=== PATIENT | male | born 1975 | race Hispanic/Latino ===

== ENCOUNTER 2017-11-03 15:38 | Emergency (ER) | payer OTHER ==
[2017-11-03] MEDS ORDERED: MOTRIN PO ONE (17:50)
--- NOTE | 2017-11-03 18:57 | XRay Report ---
FINAL REPORT PROCEDURE: Chest. TECHNIQUE: PA and lateral views. HISTORY: Bloody sputum. COMPARISON: No prior studies are available for comparison. FINDINGS: The heart and mediastinum appear normal. The lungs are clear and well expanded. There are no pleural effusions. The soft tissues and regional skeleton are unremarkable. IMPRESSION: Normal study.
--- NOTE | 2017-11-03 19:10 | Emergency Department Report ---
ED General Adult HPI - General Chief complaint: Abdominal Pain Stated complaint: ABD PAIN/COUGHING BLOOD Time Seen by Provider: 11/03/17 17:48 Source: patient Mode of arrival: Ambulatory Limitations: No Limitations - History of Present Illness Initial comments: 42-year-old male past medical history presents with complaint of persistent cough and upper abdominal discomfort. Subjective chills denies fevers. Awake alert and oriented 3 speaking in full sentences. Fully lucid and alert nontoxic-appearing and ambulatory. States he had slightly bloody cough earlier today. No history of PE or DVT. Patient is a smoker. Patient was medically screened by Dr. Caceres initially. Onset/Timin -: days(s) Severity scale (0 -10): 7 Quality: aching Consistency: intermittent Improves with: none Worsens with: cold therapy Associated Symptoms: denies other symptoms - Related Data Previous Rx's Medication Instructions Recorded Last Taken Type Albuterol Sulfate [Ventolin Hfa] 1 puff IH Q4H PRN #1 hfa.aer.ad 11/03/17 Unknown Rx Azithromycin [Zithromax TAB] 250 mg PO QDAY #5 tablet 11/03/17 Unknown Rx Naproxen [Naprosyn] 500 mg PO BID PRN #30 tablet 11/03/17 Unknown Rx Phenylephrine/Dm/Acetaminop/GG 10 ml PO Q6H PRN #1 liquid 11/03/17 Unknown Rx [Mucinex Raxg-Kiw-Afshbchthl Lq] Allergies Allergy/AdvReac Type Severity Reaction Status Date / Time No Known Allergies Allergy Unverified 11/03/17 15:41 ED Review of Systems ROS: Stated complaint: ABD PAIN/COUGHING BLOOD Other details as noted in HPI Constitutional: denies: chills, fever Eyes: denies: eye pain, eye discharge, vision change ENT: denies: ear pain, throat pain Respiratory: cough. denies: shortness of breath, wheezing Cardiovascular: denies: chest pain, palpitations Endocrine: no symptoms reported Gastrointestinal: denies: abdominal pain, nausea, diarrhea Genitourinary: denies: urgency, dysuria Musculoskeletal: denies: back pain, joint swelling, arthralgia Skin: denies: rash, lesions Neurological: denies: headache, weakness, paresthesias Psychiatric: denies: anxiety, depression Hematological/Lymphatic: denies: easy bleeding, easy bruising ED Past Medical Hx - Social History Smoking Status: Current Every Day Smoker Substance Use Type: Alcohol - Medications Home Medications: Home Medications Medication Instructions Recorded Confirmed Last Taken Type Albuterol Sulfate [Ventolin Hfa] 1 puff IH Q4H PRN #1 hfa.aer.ad 11/03/17 Unknown Rx Azithromycin [Zithromax TAB] 250 mg PO QDAY #5 tablet 11/03/17 Unknown Rx Naproxen [Naprosyn] 500 mg PO BID PRN #30 tablet 11/03/17 Unknown Rx Phenylephrine/Dm/Acetaminop/GG 10 ml PO Q6H PRN #1 liquid 11/03/17 Unknown Rx [Mucinex Lryq-Irj-Exfxevwfcc Lq] ED Physical Exam - General Limitations: No Limitations General appearance: alert, in no apparent distress - Head Head exam: Present: atraumatic, normocephalic - Eye Eye exam: Present: normal appearance, PERRL, EOMI - ENT ENT exam: Present: mucous membranes moist - Neck Neck exam: Present: normal inspection - Respiratory Respiratory exam: Present: normal lung sounds bilaterally. Absent: respiratory distress - Cardiovascular Cardiovascular Exam: Present: regular rate, normal rhythm. Absent: systolic murmur, diastolic murmur, rubs, gallop - GI/Abdominal GI/Abdominal exam: Present: soft, normal bowel sounds - Rectal Rectal exam: Present: deferred - Extremities Exam Extremities exam: Present: normal inspection - Back Exam Back exam: Present: normal inspection - Neurological Exam Neurological exam: Present: alert, oriented X3 - Psychiatric Psychiatric exam: Present: normal affect, normal mood - Skin Skin exam: Present: warm, dry, intact, normal color. Absent: rash ED Course Vital Signs 11/03/17 11/03/17 15:41 20:18 Temperature 97.6 F 98.3 F Pulse Rate 93 H 86 Respiratory 18 18 Rate Blood Pressure 143/87 Blood Pressure 140/79 [Left] O2 Sat by Pulse 98 98 Oximetry ED Medical Decision Making - Lab Data Result diagrams: 11/03/17 19:30 11/03/17 19:30 - Medical Decision Making A/P: Right lower lobe pneumonia 1-course of azithromycin 2-Mucinex, albuterol inhaler, naproxen when necessary 3-follow-up with primary care doctor. I advised patient to return to the ED for any shortness of breath at rest persistent nausea and vomiting and/or persistent chest pain 4- case discussed with Dr. Caceres before discharge Critical care attestation.: If time is entered above; I have spent that time in minutes in the direct care of this critically ill patient, excluding procedure time. ED Disposition Clinical Impression: Right lower lobe pneumonia Qualifiers: Pneumonia type: due to unspecified organism Qualified Code(s): J18.1 - Lobar pneumonia, unspecified organism Disposition: TO HOME OR SELFCARE Is pt being admited?: No Does the pt Need Aspirin: No Condition: Stable Instructions: Community-acquired Pneumonia (ED), Bacterial Pneumonia (ED) Prescriptions: Albuterol Sulfate [Ventolin Hfa] 1 puff IH Q4H PRN #1 hfa.aer.ad PRN Reason: Cough Azithromycin [Zithromax TAB] 250 mg PO QDAY #5 tablet Naproxen [Naprosyn] 500 mg PO BID PRN #30 tablet PRN Reason: Pain Phenylephrine/Dm/Acetaminop/GG [Mucinex Epjk-Pjo-Cbgvtrkblp Lq] 10 ml PO Q6H PRN #1 liquid PRN Reason: Cough Referrals: [facility] [Outside] - 3-5 Days [facility] [Outside] - 3-5 Days Forms: Work/School Release Form(ED) Time of Disposition: 20:45
[2017-11-03 19:41] LABS: Basophils % (Auto) 0.2 % (0.0-1.8); Eosinophils % (Auto) 0.6 % (0.0-4.3); Hematocrit 47.4 % (35.5-45.6); Hemoglobin 16.6 gm/dl (11.8-15.2); Mean Corpuscular HGB Conc 35 % (32-34); Mean Corpuscular Hemoglobin 31 pg (28-32); Mean Corpuscular Volume 88 fl (84-94); Platelet Count 222 K/mm3 (140-440); Red Blood Count 5.36 M/mm3 (3.65-5.03); Red Cell Distribution Width 12.7 % (13.2-15.2)
[2017-11-03 19:58] LABS: Anion Gap 20 mmol/L; BUN/Creatinine Ratio 17; Blood Urea Nitrogen 12 mg/dL (9-20); Calcium 9.3 mg/dL (8.4-10.2); Carbon Dioxide 25 mmol/L (22-30); Chloride 99.2 mmol/L (98-107); Glucose 87 mg/dL (75-100); Potassium 4.3 mmol/L (3.6-5.0); Sodium 140 mmol/L (137-145)
[2017-11-03 20:20] VITALS: BP 140/79
[2017-11-03 20:20] LABS: Bilirubin,Urine NEG (Negative); Blood,Urine NEG (Negative); Ketones,Urine NEG (Negative); Leukocyte Esterase,Urine NEG (Negative); Mucus,Urine 3+ /HPF; Nitrite,Urine NEG (Negative); Protein,Urine <15 mg/dL mg/dL (Negative); Urobilinogen,Urine < 2.0 mg/dL (<2.0)
--- NOTE | 2017-11-03 20:30 | Cat Scan Report ---
FINAL REPORT PROCEDURE: CT abdomen and pelvis without contrast. TECHNIQUE: Computerized axial tomography of the abdomen and pelvis was performed without intravenous contrast. This study is performed without intravascular contrast material and its sensitivity for abdominal and pelvic pathology, including neoplasms, inflammation, abscess, free fluid, thrombosis, arterial dissection and infarction, is reduced compared with a contrast enhanced study. HISTORY: Right flank pain. COMPARISON: No prior studies are available for comparison. FINDINGS: There is some focal alveolar opacity in the medial portion of the right lower lobe. This is adjacent to the pleura. It is consistent with pneumonia. Follow-up imaging to document clearing is recommended however. There are no pleural effusions. The heart size is normal. The liver is grossly normal. The gallbladder is partially contracted. The pancreas and spleen appear normal. The adrenal glands are not enlarged. Both kidneys appear normal in size and configuration. There are 2 tiny cortical masses in the left kidney which have lower attenuation. These probably represent simple cysts. The abdominal aorta has a normal caliber. There is no retroperitoneal adenopathy. The unopacified gastrointestinal tract is unremarkable. A normal appendix is visible. The bladder, seminal vesicles and prostate appear normal. The regional skeleton appears intact. IMPRESSION: Focal abnormal opacity in the right lower lobe which may represent pneumonia. Follow-up imaging recommended. Probable 2 tiny left renal cysts. Otherwise normal unenhanced studies of the abdomen and pelvis.
[2017-11-03] MEDS ORDERED: ZITHROMAX PO ONE (20:40)
== END 2017-11-03 20:54 | disposition home or self-care (01) ==
LOC: ED 15:38
DX: J18.1 Lobar pneumonia, unspecified organism (principal); F17.200 Nicotine dependence, unspecified, uncomplicated
CPT/HCPCS: 36415; 71020; 74176; 80048; 81001; 85025; 85379